=== PATIENT | female | born 1995 | race Two or more races ===

== ENCOUNTER → 2022-06-08 | Outpatient (CLI) | payer OTHER ==
[~2022-06-08] MED LIST: IRON325 MG PO; LOVENOX40 MG/0.4 SUBCUTANEO; PRENATAL TABLE1 EAC3 PO
== END | disposition home or self-care (01) ==
LOC: NST 13:15
PROVIDERS: ATTEND Obstetrics & Gynecology Gynecology
DX: Z34.83 Encounter for supervision of other normal pregnancy, third trimester (principal)

== ENCOUNTER 2022-06-18 08:34 | Inpatient (IN) | payer OTHER ==
[~2022-06-18] VITALS: Ht 157.5 cm; Wt 73.0 kg
== END 2022-06-20 15:34 | DRG 798 ==
LOC: LDR 08:34 → OB/GYN 19:33
PROVIDERS: ADMIT Obstetrics & Gynecology Gynecology; ATTEND Obstetrics & Gynecology Gynecology
PROC: 10E0XZZ Delivery of Products of Conception, External Approach (ICD-10-PCS; principal; 2022-06-18)
PROC: 0UB70ZZ Excision of Bilateral Fallopian Tubes, Open Approach (ICD-10-PCS; 2022-06-18)
PROC: 0HQ9XZZ Repair Perineum Skin, External Approach (ICD-10-PCS; 2022-06-18)
PROC: 0UQMXZZ Repair Vulva, External Approach (ICD-10-PCS; 2022-06-18)
PROC: 4A1HXCZ Monitoring of Products of Conception, Cardiac Rate, External Approach (ICD-10-PCS; 2022-06-18)
DX: O70.0 First degree perineal laceration during delivery (principal); Z37.0 Single live birth; O71.82 Other specified trauma to perineum and vulva; Z3A.39 39 weeks gestation of pregnancy; Z20.822 Contact with and (suspected) exposure to COVID-19; Z30.2 Encounter for sterilization